=== PATIENT | female | born 1965 | race Caucasian/White ===

== ENCOUNTER 2017-06-02 18:58 | Emergency (ER) | payer SELFPAY ==
[~2017-06-02] VITALS: Ht 160 cm; Wt 64.0 kg
[2017-06-02] MEDS ORDERED: TraMADol HCL 50 MG TABLET PO ONE (20:45)
[2017-06-02 21:07] VITALS: BP 134/89
[2017-06-03 04:54] LABS: GLUCOSE,POINT OF CARE 126 MG/DL (70-110)
== END 2017-06-02 21:18 | disposition home or self-care (01) ==
LOC: EMS 19:00
DX: K00.6 Disturbances in tooth eruption (principal); K04.7 Periapical abscess without sinus; I10 Essential (primary) hypertension; Z88.5 Allergy status to narcotic agent
CPT/HCPCS: 82948; 82962; 99283